=== PATIENT | male | born 1955 | race Caucasian/White ===

== ENCOUNTER 2019-04-02 00:06 | Emergency (ER) | payer OTHER ==
[~2019-04-02] VITALS: Ht 175.3 cm; Wt 78.0 kg
[~2019-04-02 00:06] MED LIST: ELIQUIS5 MG PO; FLECAINIDE ACET50 M1 PO; LIPITOR40 MG PO; METOPROLOL SUCC25 M1 PO; OMEPRAZOLE40 MG PO; PRILOSEC 20 MG20 MG PO; PRINIVIL5 MG PO
[2019-04-02] MEDS ORDERED: TOPROL XL25 MG PO (00:28)
[2019-04-02 00:37] LABS: ABSOLUTE NEUTROPHILS 3.6 thou/uL (1.4-8.2); BASOPHILS 0.5 % (0.0-2.0); EOSINOPHILS 2.1 % (0.0-3.0); HEMATOCRIT 44.5 % (42.0-52.0); HEMOGLOBIN 15.1 gm/dL (14.0-18.0); MCH 31.9 pg (26.0-34.0); MCHC 33.8 g/dL (28.0-37.0); MCV 94.3 fL (80.0-100.0); MONOCYTES 9.1 % (1.0-8.0); PLATELET COUNT 215 thou/uL (150-400); POLYS 47.3 % (36.0-66.0); RBC 4.72 mil/uL (4.50-6.00); WBC 7.7 thou/uL (4.0-11.0)
[2019-04-02 00:51] LABS: CALCIUM 9.1 mg/dL (8.5-10.1)
[2019-04-02 00:58] LABS: MAGNESIUM 2.1 mg/dL (1.8-2.4); TROPONIN-I <0.06 ng/mL (<0.06)
[2019-04-02 03:23] VITALS: BP 105/64
--- NOTE | 2019-04-02 09:01 | EKG ---
[place] [address] [facility] [place] [address] ELECTROCARDIOGRAM REPORT Name: WARD LAMAS [facility] Room #: [facility]P [facility] [id number] ������������������ Admission: 04/02/19 ������������������ Attend Phys: Discharge: 04/02/19 ������������������ Date of : 53 Report #: [id number] ����������������������������������������������������������������� [id number] THIS REPORT FOR: //name// [facility] ED Test Date: 2019-04-02 Test Time: 00:21:55 Pat Name: WARD LAMAS Department: Room: Gender: M Contracting Officer: DORINA : 1955 Requested By: Kyle Botello Order Number: [id number] MD: Jv Lin Measurements Intervals [place] Rate: 61 P: W[place]: QRS: -44 QRSD: 154 T: 31 QT: 491 QTc: 495 Interpretive Statements Atrial flutter with predominant 4:1 AV block RBBB and LAFB Left ventricular hypertrophy No previous ECG available for comparison Electronically Signed On 04-02-2019 9:00:45 CDT by Jv Lin [email or web address] ��������������������������������������������� <ELECTRONICALLY SIGNED> ���������������������������������������� By: Jv Lin MD, [facility] ��������������������������������������������� 04/02/19 09 Jv Lin MD, FACC /EPI
== END 2019-04-02 03:24 | disposition home or self-care (01) ==
LOC: ER
PROVIDERS: Emergency Medicine
DX: R07.89 Other chest pain (principal); K21.9 Gastro-esophageal reflux disease without esophagitis; I48.92 Unspecified atrial flutter; F17.210 Nicotine dependence, cigarettes, uncomplicated; Z98.890 Other specified postprocedural states

== ENCOUNTER 2019-04-10 09:14 | Outpatient (CLI) | payer OTHER ==
[2019-04-10] VITALS (10 sets, daily range): BP systolic 109–133; BP diastolic 71–86
[~2019-04-10] VITALS: Ht 175.3 cm; Wt 78.9 kg
--- NOTE | ~2019-04-10 | P ---
[facility] [place] [address] PROCEDURE REPORT Name: WARD LAMAS LINK Room #: 207-P [facility] ANGELINA McgovernRufus#: [id number] Admission: 04/10/19 ������������������ Attend Phys: Jn Person MD Discharge: ������������������ Date of : 53 Report #: [id number] THIS REPORT FOR: //name// CC: Joanne Person PREOPERATIVE DIAGNOSES: 1. Atrial fibrillation. 2. Atrial flutter. POSTOPERATIVE DIAGNOSES: 1. Atrial fibrillation. 2. Atrial flutter. PROCEDURES PERFORMED: 1. Atrial fibrillation ablation, CPT code 86728. 2. 3D mapping, CPT code 18636. 3. Intracardiac echo, CPT code 70629. 4. Focal ablation with creation of a roofline CPT code 75002. 5. Second pathway ablation, CPT code 81593. HISTORY: The patient is a 63-year-old male with a history of atrial flutter, status post recent ablation. He also has a history of prior VSD repair. He has mildly decreased ejection fraction around 40-45%. He has had newly diagnosed atrial fibrillation. He is intolerant of antiarrhythmic drugs and is here for an ablation. ANESTHESIA: The patient underwent general anesthesia with no anesthesia related complications. DESCRIPTION OF PROCEDURE: The patient underwent informed consent. We discussed the details of the procedure including the risks, which include but not limited to bleeding, vascular damage, cardiac perforation as well as stroke or VA. He understood these risks and is willing to proceed. The patient was brought to the EP laboratory in a fasting and sedated state and prepped and draped in a sterile fashion. In the right femoral vein, I placed 8, 9 and 7-Paraguayan short sheath and in the left femoral vein, I placed a 7-Paraguayan short sheath using the modified Seldinger technique. Prior to inserting these sheaths, Lidocaine was administered. Next, under fluoroscopy, a decapolar catheter was placed into the left atrium. Of note, he has a very difficult coronary sinus. I had difficulties during the last procedure as this coronary sinus is very vertical and likely there is some sort of valve that is obstructing placement into the CS proper. Therefore, I was not able to get this during the initial part of the procedure. At the end of case when I finally needed to do an atrial flutter ablation, I spent significant amount of time and finally got it to go in deeply into the coronary sinus. Next, ICE catheter was [facility] [address] [place] [address] PROCEDURE REPORT Name: WARD LAMAS LINK Room #: 207-P [facility] ANGELINA Nguyen#: [id number] Admission: 04/10/19 ������������������ Attend Phys: Jn Person MD Discharge: ������������������ Date of : 53 Report #: [id number] placed into the right atrium and 3D intracardiac ultrasound was created of the left atrium with evidence of 2 left and 2 right pulmonary veins. Next, the patient was systemically heparinized and a transseptal was performed using an SL1 sheath and a Romney needle. I then cross with the cryo sheath into the left atrium. Next, I placed the [employer] Harper Lasso catheter into the left atrium and created a detailed 3D voltage map of the left atrium and I did terminate the atrial flutter that the patient was in. I do believe this was a recurrence of his right-sided atrial flutter. At baseline, the patient was in atrial flutter with a ventricular cycle length of 1095 milliseconds, QRS duration of 160 milliseconds with a right bundle-branch block and left anterior fascicular block and an atrial cycle length of 270 milliseconds with proximal and distal activation along the coronary sinus catheter and negative sawtooth flutter waves in the inferior lead. Next, I placed the cryoballoon into the left atrium. I performed two 4-minute freezes in the left superior pulmonary vein. The vein isolated within 85 seconds of the second freeze. I then turned my attention to the left inferior pulmonary vein. This isolated quickly during the first freeze; however, when I went back at the end of the case to re-interrogate this vein and had reconnected, I performed a second freeze that resulted in isolation within 18 seconds. The second freeze was of 3 minutes duration. I turned my attention to the right superior pulmonary vein. This underwent a 4-minute freeze followed by a 3-minute freeze and the vein was noted to be isolated, but I do not see acute isolation. The right inferior pulmonary vein initially underwent a 30-second freeze and the vein isolated within 56 seconds. There was some phrenic nerve weakening during this freeze, so we came off and he eventually returned to full strength. I performed a second freeze of 120 seconds duration. I then performed a roofline with 3 freezes anchored from the left superior pulmonary vein and 2 freezes anchored from the right superior pulmonary vein. The esophageal temperatures were monitored and were within normal limits throughout these freezes. Next, a repeat voltage map of the left atrium was created, which showed that there was wide circumferential ablation of the pulmonary veins and there was creation of a roofline with a small area of normal atrial tissue along the posterior wall of the left atrium. After finishing on the left side, we went back to the right side and I placed a Duo-Decapolar catheter into the right atrium and paced from the CS and there was no evidence of bidirectional block. The transisthmus conduction time was 120 milliseconds. Therefore, I used a ramp catheter and a SmartTouch ThermoCool ablation catheter and created a voltage map of prior ablation lesion set. There was evidence of reconnection along the mid aspect of prior ablation line. Both anterior and posterior, there appeared to still be no significant voltage. There was evidence of a pouch here. I performed ablation in this midsection at 40 gee and had difficulties initially obtaining block. I focused on this pouch area and eventually while we were pacing, we saw that there was a medial to lateral block. The transisthmus conduction time was now 190 milliseconds with evidence of bidirectional block. Repeat voltage map showed that there were no significant signals left along this area for further ablation. As such, the [facility] [address] [place] [address] PROCEDURE REPORT Name: WARD LAMAS LINK Room #: 207-P [facility] [id number] Admission: 04/10/19 ������������������ Attend Phys: Jn Person MD Discharge: ������������������ Date of : 53 Report #: [id number] patient was in sinus rhythm, intracardiac ultrasound was utilized and there was no pericardial effusion. The patient received systemic protamine and once ACT was within acceptable range, all catheters and sheaths were pulled and hemostasis obtained. The patient awoke neurologically and hemodynamically intact. No complications and no significant bleeding. CONCLUSIONS: 1. Successful AFib ablation with wide circumferential ablation of the pulmonary veins. 2. Successful creation of a roofline. 3. Successful right-sided atrial flutter ablation with evidence of bidirectional block. ��������������������������������������������� ���������������������������������������� By: ��������������������������������������������� 1559 0215 Jn Person MD /nt
[~2019-04-10 09:14] MED LIST changes: +TOPROL XL25 MG PO
[2019-04-10 10:32] LABS: WBC 6.8 thou/uL (4.0-11.0)
[2019-04-10 10:34] LABS: ABSOLUTE NEUTROPHILS 3.9 thou/uL (1.4-8.2); BASOPHILS 0.5 % (0.0-2.0); EOSINOPHILS 1.7 % (0.0-3.0); HEMATOCRIT 46.2 % (42.0-52.0); HEMOGLOBIN 15.7 gm/dL (14.0-18.0); LYMPHOCYTES 29.2 % (24.0-44.0); MCHC 33.9 g/dL (28.0-37.0); MCV 94.2 fL (80.0-100.0); PLATELET COUNT 200 thou/uL (150-400); POLYS 57.6 % (36.0-66.0); RBC 4.91 mil/uL (4.50-6.00); RDW 13.3 % (10.5-14.5)
[2019-04-10 10:44] LABS: APTT 32.4 Seconds (24.5-32.8); PROTIME 10.2 Seconds (9.3-11.4)
[2019-04-10 10:49] LABS: CALCIUM 9.4 mg/dL (8.5-10.1); CREATININE 1.1 mg/dL (0.7-1.3); TOTAL PROTEIN 7.1 g/dL (6.4-8.2)
[2019-04-10 13:37] LABS: POTASSIUM 4.2 mmol/L (3.5-5.1)
[2019-04-10] MEDS ORDERED: AMIODARONE HCL100 MG PO (16:29)
[2019-04-11] VITALS (7 sets, daily range): BP systolic 109–123; BP diastolic 61–75
--- NOTE | 2019-04-11 05:09 | NUR ---
PT. ARRIVED AT FLOOR AROUND 1909; PT. AOX4; RELATIVE AT THE BED SIDE; NO HEMATOMA OVER R & L GROIN AREA AT SHIFT CHANGE; PT. EDUCATED ABOUT BED REST UNTIL 2219; ST. UNDERSTANDING; EDUCATED ABOUT HOLDING PRESSURE WHEN COUGHIN OR LAUGHIN; ST. UNDERSTANDING; HS MEDICATION GIVEN TOGETHER WITH PRN PAIN MEDICATION; AROUND MIDNIGHT PT. C/O OF NUMBNESS & TINGLING OVER FACE, JAW, BACK HEAD; & BUE; PNEURO ASSESSMENT PERFORMED; NO NEW FINDINS; CHECK CHARTING; PT. ST. SYMPTOMS HAVE HAPPENED BEFORE AT HOME WHEN LYING DOWN ON BED FOR TOO LONG; C/O FEELING HR; HR ON 80s; ST. ELEVATED FOR PT.; VS WNL; CHECK CHARTING; HELPED TO SIT ON THE SIDE OF THE BED; ABLE TO BURP; GO BACK TO BED AFTER AROUND 7 MINS; ST. DECREASE NUMBNESS & TINGLING; C/O L. SIDE CHEST; 07/31; ST. PAIN DECREASES WHEN PRESS IT; NO HEMATOMA OVER R & L GROIN; PULSES 2/2; CLOSE TO 0200 REQUESTED SOMETHING TO HELP HIM RELAX; ST. ABLE TO SLEEP WHEN RELAX SINCE HR DECREASE & CANNOT FEEL IT; PHYSICIAN NOTIFIED; ORDERS RECEIVED; BENADRYL GIVEN; DURIN RE-ASSESSMENT PT. ST. ABLE TO REST FOR A MOMMENT; C/O NUMBNESS OVER R & L UPPER EXTREMITIES; "COMES & GOES"; DECREASE AT THE MOMMENT OF ASSESSMENT; MONITORIN; WILL PASS ON REPORT; ASSESSMENT CHARGED; FOLLOWING POC;
--- NOTE | 2019-04-11 11:55 | EKG ---
[place] [address] [facility] [place] [address] ELECTROCARDIOGRAM REPORT Name: WARD LAMAS [facility] Room #: [facility] ANGELINA Nguyen#: [id number] ������������������ Admission: 04/10/19 ������������������ Attend Phys: Jn Person MD Discharge: 04/11/19 ������������������ Date of : 53 Report #: [id number] ����������������������������������������������������������������� [id number] THIS REPORT FOR: //name// [facility] Test Date: 2019-04-10 Test Time: 18:47:54 Pat Name: WARD LAMAS Department: Room: Gender: Credit Assessment Analyst: Jailyn FERNANDES : 1955 Requested By: Jv Lin Order Number: [id number] MD: Jv Lin Measurements Intervals [place] Rate: 78 P: 11 DE: 162 QRS: -56 QRSD: 158 T: 38 QT: 457 QTc: 521 Interpretive Statements Sinus rhythm RBBB and LAFB Left ventricular hypertrophy Compared to ECG 04/02/2019 00:21:55 Atrial flutter no longer present Electronically Signed On 04-11-2019 11:54:52 CDT by Jv Lin [email or web address] ��������������������������������������������� <ELECTRONICALLY SIGNED> ���������������������������������������� By: Jv Lin MD, [facility] ��������������������������������������������� 04/11/19 1154 1847 1847 Jv Lin MD, [facility] /EPI
== END 2019-04-11 09:35 | disposition home or self-care (01) ==
LOC: CATH → 2N 19:05 → CATH 04-11 09:35
PROVIDERS: Internal Medicine Cardiovascular Disease
DX: I48.91 Unspecified atrial fibrillation (principal); I48.92 Unspecified atrial flutter; K21.9 Gastro-esophageal reflux disease without esophagitis; Z87.891 Personal history of nicotine dependence; Z79.899 Other long term (current) drug therapy; Z98.890 Other specified postprocedural states; Z79.01 Long term (current) use of anticoagulants
CPT/HCPCS: 10081; 62110; 62900; 65020; 65040; 70005

== ENCOUNTER → 2019-04-20 | Outpatient (CLI) | payer OTHER ==
[~2019-04-20] MED LIST changes: +AMIODARONE HCL100 MG PO
--- NOTE | 2019-04-20 15:13 | 2DMMODE ---
[facility] [place] [employer] [place] [address] 2 D/M-MODE ECHOCARDIOGRAM Name: WARD LAMAS LINK Room #: REG ShaniquaRufus#: [id number] Admission: 04/20/19 Attend Phys: Jn Person Discharge: Date of : 53 Report #: [id number] THIS REPORT FOR: //name// APPROVED REPORT Study performed: 04/20/2019 14:33:47 EXAM: Comprehensive 2D, Doppler, and color-flow Echocardiogram Patient Location: Out-Patient Room #: Echo lab 2 Status: routine BSA: 1.96 HR: 60 bpm BP: 132/78 mmHg Rhythm: NSR Other Information Study Quality: Good Indications Chest Pain S^P Ablation 2D Dimensions IVC: 13.00 mm Aortic Valve AI Vmax: 4.12 m/s AI Daniels: 1.84 m/s2 AI PHT: 649.35 ms Tricuspid Valve TR Peak Terrell.: 2.31 m/s TR Peak Gr.: 21.32 mmHg PA Pressure: 26.00 mmHg Left Ventricle The left ventricle is normal size. There is normal LV segmental wall motion. There is normal left ventricular wall thickness. Left ventricular systolic function is normal. The left ventricular ejection fraction is within the normal range. LVEF is 55-60%. This study is not technically sufficient to allow evaluation of the LV diastolic function. Right Ventricle [facility] [address] [place] [address] 2 D/M-MODE ECHOCARDIOGRAM Name: WARD LAMAS LINK Room #: REG BARBARA Nguyen#: [id number] Admission: 04/20/19 Attend Phys: Jn [facility] Discharge: Date of : 53 Report #: [id number] The right ventricle is normal size. The right ventricular systolic function is normal. Atria Left atrium is dilated. Right atrium is dilated. Aortic Valve The aortic valve is normal in structure. Mild to moderate aortic regurgitation. There is no aortic valvular stenosis. Mitral Valve The mitral valve is normal in structure. Trace mitral regurgitation. No evidence of mitral valve stenosis. Tricuspid Valve The tricuspid valve is normal in structure. There is trace tricuspid regurgitation. Estimated PAP 26 mmHg. There is no pulmonary hypertension. Pulmonic Valve The pulmonary valve is normal in structure. There is no pulmonic valvular regurgitation. Great Vessels The aortic root is normal in size. IVC is normal in size and collapses >50% with inspiration. Pericardium There is no pericardial effusion. <Conclusion> The left ventricle is normal size. There is normal left ventricular wall thickness. Left ventricular systolic function is normal. The right ventricle is normal size. Left atrium is dilated. Right atrium is dilated. Mild to moderate aortic regurgitation. Trace mitral regurgitation. There is trace tricuspid regurgitation. Estimated PAP 26 mmHg. <ELECTRONICALLY SIGNED> By: Shekhar Packer MD 04/20/19 1513 12 12 Shekhar Packer MD /INF
== END ==
LOC: CATH → RAD 14:21
DX: I48.91 Unspecified atrial fibrillation (principal); I48.0 Paroxysmal atrial fibrillation; I35.1 Nonrheumatic aortic (valve) insufficiency; R07.1 Chest pain on breathing; R06.02 Shortness of breath; I25.10 Atherosclerotic heart disease of native coronary artery without angina pectoris

== ENCOUNTER 2019-06-10 10:20 | Emergency (ER) | payer OTHER ==
[~2019-06-10] VITALS: Ht 175.3 cm; Wt 81.7 kg
[2019-06-10] MEDS ORDERED: AUGMENTIN 875-1 EACH PO (10:35)
[2019-06-10 11:39] LABS: ABSOLUTE NEUTROPHILS 4.8 thou/uL (1.4-8.2); BASOPHILS 0.4 % (0.0-2.0); EOSINOPHILS 0.7 % (0.0-3.0); HEMATOCRIT 44.2 % (42.0-52.0); LYMPHOCYTES 19.4 % (24.0-44.0); MCH 31.2 pg (26.0-34.0); MCHC 33.9 g/dL (28.0-37.0); MONOCYTES 8.2 % (1.0-8.0); PLATELET COUNT 205 thou/uL (150-400); POLYS 71.3 % (36.0-66.0); RBC 4.81 mil/uL (4.50-6.00); WBC 6.7 thou/uL (4.0-11.0)
[2019-06-10 11:41] LABS: URINE BILIRUBIN NEGATIVE (Negative); URINE BLOOD NEGATIVE (Negative); URINE CLARITY CLEAR; URINE COLOR YELLOW; URINE GLUCOSE-RANDOM* NEGATIVE (Negative); URINE KETONES NEGATIVE (Negative); URINE LEUKOCYTES-REFLEX NEGATIVE (Negative); URINE NITRITE-REFLEX NEGATIVE (Negative); URINE PROTEIN (DIPSTICK) NEGATIVE (Negative); URINE UROBILINOGEN 0.2 E.U./dl (0.2-1.0)
[2019-06-10 11:42] LABS: CALCIUM 9.4 mg/dL (8.5-10.1); CREATININE 1.1 mg/dL (0.7-1.3); POTASSIUM 3.8 mmol/L (3.5-5.1)
--- NOTE | 2019-06-10 13:54 | EKG ---
[place] [address] [place] [address] ELECTROCARDIOGRAM REPORT Name: WARD LAMAS LINK [id number] Admission: 06/10/19 Attend Phys: Discharge: Date of : 53 Report #: [id number] THIS REPORT FOR: //name// [facility] ED Test Date: 2019-06-10 Test Time: 10:27:21 Pat Name: WARD LAMAS Department: Room: Gender: M Annual Giving Manager: : 1955 Requested By: Adrien Padilla Order Number: [id number] MD: Jn Person Measurements Intervals [place] Rate: 58 P: -38 DC: 198 QRS: -53 QRSD: 160 T: 42 QT: 513 QTc: 504 Interpretive Statements Sinus rhythm RBBB and LAFB Left ventricular hypertrophy Compared to ECG 04/10/2019 18:47:54 No significant changes Electronically Signed On 06-10-2019 13:54:39 CONTEMPORARY [employer] MODERN DANCER by Jn Person [email or web address] <ELECTRONICALLY SIGNED> By: Jn Person MD 06/10/19 1354 D: [id number] Jn Person MD /LM
[2019-06-10 14:24] VITALS: BP 157/73
== END 2019-06-10 14:25 | disposition home or self-care (01) ==
LOC: ER 10:20
PROVIDERS: Nurse Practitioner
DX: R07.89 Other chest pain (principal); K21.9 Gastro-esophageal reflux disease without esophagitis; I48.92 Unspecified atrial flutter; Z87.891 Personal history of nicotine dependence